=== PATIENT | female | born 1960 | race Hispanic/Latino ===

== ENCOUNTER 2017-12-07 04:36 | Inpatient (IN) | payer BC ==
[2017-12-07] MEDS ORDERED: NA CHLORIDE 0.9% 500 ML ONE (05:05)
[2017-12-07] MEDS ORDERED: MAGNE/ALUM HYDROXD 30 ML UCUP ONE ×2 (05:05→05:48)
[2017-12-07] MEDS ORDERED: ONDANSETRON 4 MG/2 ML VIAL ONE ×3 (05:05→10:54)
[2017-12-07] MEDS ORDERED: LIDOCAINE VISCOUS 2% SOLN 15 ML UDC ONE ×3 (05:06→05:51)
[2017-12-07 05:24] LABS: Absolute Lymphocytes (CBC) 1.9 K/uL (0.7-4.9); Absolute Monocytes 0.4 K/uL (0.1-1.3); Absolute Neutrophil 7.4 K/uL (1.8-8.0); Basophils % 0.3 % (0-1.3); Eosinophils % 1.1 % (0-4.4); Hematocrit 38.3 % (36.0-45.0); Lymphocytes % 19.5 % (15.3-44.8); MCH 29.9 pg (27.0-35.0); Monocytes % 3.9 % (3.3-12.3); RBC Red Blood Cell Count 4.36 M/uL (3.86-4.86)
[2017-12-07 05:41] LABS: ALT/SGPT 23 U/L (12-78); AST/SGOT 26 U/L (15-37); Albumin 3.2 g/dL (3.4-5.0); Alkaline Phosphatase 107 U/L (45-117); BUN Blood Urea Nitrogen 10 mg/dL (7-18); Bicarbonate 26 mmol/L (21-32); Bilirubin Direct < 0.1 mg/dL (0-0.2); Bilirubin Total 0.2 mg/dL (0.2-1.0); Glucose Level 117 mg/dL (74-106); Lipase 172 U/L (73-393); Potassium 3.8 mmol/L (3.5-5.1); Protein, Total 7.8 g/dL (6.4-8.2); Sodium Level 141 mmol/L (136-145)
[2017-12-07] MEDS ORDERED: NA CHLORIDE 0.9% 0 ML ONE ×2 (05:48→05:54)
[2017-12-07] MEDS ORDERED: PANTOPRAZOLE 40 MG INJ ONE (05:54)
[2017-12-07 06:22] LABS: Urine Blood 2+ (NEG); Urine Glucose NEGATIVE (NEG); Urine Protein NEGATIVE (NEG); Urine Specific Gravity 1.025 (1.005-1.030); Urine pH 5.5 (5.0-7.0)
[2017-12-07 06:32] LABS: Urine Bacteria <20 /HPF (<20); Urine Culture Reflex Order NOT NEEDED; Urine RBC <5 /HPF (NONE SEEN)
--- NOTE | 2017-12-07 08:43 | RAD REPORT ---
EXAM DESCRIPTION: CTAbdomen Pelvis W Contrast - 12/07/2017 6:52 am CLINICAL HISTORY: Abdominal pain. ABD PAIN COMPARISON: CT ABD PELVIS W CONTRAST dated 01/23/2012; Upper GI W/ Sm Bowel dated 11/22/2017; Abdomen W Erect dated 11/20/2017 TECHNIQUE: Biphasic CT imaging of the abdomen and pelvis was performed with 100 ml non-ionic IV cont rast. All CT scans are performed using dose optimization technique as appropriate and may include automated exposure control or mA/KV adjustment according to patient size. FINDINGS: The lung bases are clear. The liver contains several small low-density lesions, most compatible with benign cysts. No intra or extrahepatic biliary tree dilatation seen. The spleen, pancreas, adrenal glands and kidneys are withi n normal limits. Marked distention of the right colon is seen filled with fluid to the level of the mid transverse col on. The lumen of the colon is distended to 6-7 cm. There is abrupt caliber change of the colon at the level of the mid transverse colon (image 42/[id number]). Soft tissue mass is seen in this location measuring 2.5 cm in dimension. The findings likely indicate the presence of a colonic malignancy at this level resulting in upstream partial obstruction of the colon. Small pericolonic lymph nodes are present in this region measuring up to 6 mm. The appendix is not identified as a discrete structure, however, n o secondary findings of appendicitis are identified. No free air, significant free fluid or abscess. No suspicious bony findings. IMPRESSION: Mid transverse colon mass (2.5 cm) is identified resulting in partial upstream colonic o bstruction as detailed above. Colon malignancy is the most likely etiology and followup colonoscopy i s recommended.
--- NOTE | 2017-12-07 10:04 | EDPHYS ---
Physician Documentation [facility] Name: Zunilda Alejandro Age: 57 yrs Sex: Female : 1960 Arrival Date: 12/07/2017 Time: 04:38 Bed 5 Private MD: Bacilio Soto ED Physician Garcia Nj HPI: 12/07 04:55 This 57 yrs old Female presents to ER via Ambulatory with complaints of rn Abdominal Pain, Nausea. 04:55 The patient presents to the emergency department with nausea, vomiting, abdominal pain. rn Onset: The symptoms/episode began/occurred 2 day(s) ago. Possible causes: unknown. The symptoms are aggravated by nothing. The symptoms are alleviated by nothing. Severity of symptoms: At their worst the symptoms were moderate in the emergency department the symptoms have improved. The patient has experienced a previous episode. Reports intermittent coral-umbilical abd pain for 2 days, has had in past, seen by pcp, and had normal barium swallow, reports pain feels like "it moves", no diarrhea, no blood in stool or emesis, no chest pain, has tried liquid diet because when eats solids, abd pain/cramping returns hours later. . Historical: - Allergies: 04:55 No Known Allergies; lp1 - Home Meds: 04:55 atorvastatin 10 mg oral tab 1 tab once daily [Active]; lp1 - PMHx: 04:55 Hyperlipidemia; lp1 - PSHx: 04:55 Appendectomy; lp1 - Immunization history:: Adult Immunizations up to date. - Social history:: Smoking status: Patient/guardian denies using tobacco. - Ebola Screening: : No symptoms or risks identified at this time. - Family history:: not pertinent. - Hospitalizations: : No recent hospitalization is reported. ROS: 04:55 Constitutional: Negative for fever, chills, and weight loss, Eyes: Negative for injury, rn pain, redness, and discharge, Neck: Negative for injury, pain, and swelling, Cardiovascular: Negative for chest pain, palpitations, and edema, Respiratory: Negative for shortness of breath, cough, wheezing, and pleuritic chest pain, Abdomen/GI: Negative for diarrhea, and constipation, MS/Extremity: Negative for injury and deformity, Skin: Negative for injury, rash, and discoloration, Neuro: Negative for headache, weakness, numbness, tingling, and seizure. Exam: 04:55 Constitutional: This is a well developed, well nourished patient who is awake, alert, rn and in no acute distress. Head/Face: Normocephalic, atraumatic. ENT: MMM Cardiovascular: Regular rate and rhythm with a normal S1 and S2. No gallops, murmurs, or rubs. No pulse deficits. Respiratory: Lungs have equal breath sounds bilaterally, clear to auscultation and percussion. No rales, rhonchi or wheezes noted. No increased work of breathing, no retractions or nasal flaring. Abdomen/GI: soft, mild epigastric/RUQ/periumbilical tenderness, no rebound MS/ Extremity: Pulses equal, no cyanosis. Neurovascular intact. Full, normal range of motion. Equal circumference. Neuro: Awake and alert, GCS 15, oriented to person, place, time, and situation. Cranial nerves II-XII grossly intact. Motor strength 5/5 in all extremities. Sensory grossly intact. Vital Signs: 04:53 BP 111 / 71; Pulse 74; Resp 18; Temp 98.5(O); Pulse Ox 100% on R/A; Weight 83.01 kg; lp1 Height 5 ft. 7 in. (170.18 cm); Pain 1/10; 06:00 BP 107 / 92; Pulse 64; Resp 18; Pulse Ox 99% on R/A; lp1 07:00 BP 120 / 78; Pulse 61; Resp 16 S; Pulse Ox 99% on R/A; jl7 08:30 BP 109 / 73; Pulse 64; Resp 16 S; Pulse Ox 98% on R/A; Pain 0/10; jl7 10:41 BP 106 / 79; Pulse 70; Resp 17; Pulse Ox 98% on R/A; jb1 10:52 BP 116 / 79; Pulse 72; Resp 16; Pulse Ox 97% on R/A; jl7 04:53 Body Mass Index 28.66 (83.01 kg, 170.18 cm) lp1 MDM: 04:40 Patient medically screened. rn 10:02 Data reviewed: vital signs, nurses notes, lab test result(s), radiologic studies, CT jr8 scan. Data interpreted: Pulse oximetry: on room air is 98 %. Interpretation: normal. Counseling: I had a detailed discussion with the patient and/or guardian regarding: the historical points, exam findings, and any diagnostic results supporting the discharge/admit diagnosis, lab results, radiology results, the need for further work-up and treatment in the hospital. ED course: Dr. Márquez is admitting patient. Dr. Dobbs will see patient . 12/07 04:49 Order name: Basic Metabolic Panel; Complete Time: 06:27 rn 12/07 04:49 Order name: CBC with Diff; Complete Time: 05:31 rn 12/07 04:49 Order name: Hepatic Function; Complete Time: 06:27 rn 12/07 04:49 Order name: Lipase; Complete Time: 06:27 rn 12/07 04:49 Order name: Urine Microscopic Only; Complete Time: 06:34 rn 12/07 06:12 Order name: Urine Dipstick--Ancillary (enter results); Complete Time: 06:27 mw2 12/07 04:49 Order name: CT Abd/Pelvis - W/Contrast; Complete Time: 08:44 rn 12/07 04:49 Order name: EKG; Complete Time: 04:50 rn 12/07 10:33 Order name: CONS Physician Consult EDMS 12/07 04:49 Order name: IV Saline Lock; Complete Time: 04:59 rn 12/07 04:49 Order name: Labs collected and sent; Complete Time: 04:59 rn 12/07 04:49 Order name: Urine Dipstick-Ancillary (obtain specimen); Complete Time: 06:59 rn 12/07 04:49 Order name: EKG - Nurse/Tech; Complete Time: 05:12 rn Administered Medications: 05:12 Drug: Zofran 4 mg Route: IVP; Site: right antecubital; jd3 07:00 Follow up: Response: No adverse reaction jl7 05:12 Drug: NS 0.9% 500 ml Route: IV; Rate: bolus; Site: right antecubital; jd3 07:00 Follow up: IV Status: Completed infusion jl7 05:13 Drug: GI Cocktail without - (Maalox Suspension 30 ml, Lidocaine Liquid 2 % 15 jd3 ml) Route: PO; 07:00 Follow up: Response: No adverse reaction jl7 10:52 Drug: Zofran 4 mg Route: IVP; Site: right antecubital; jl7 11:10 Follow up: Response: No adverse reaction; Nausea is decreased jl7 10:55 Drug: fentaNYL (PF) 25 mcg Route: IVP; Site: right antecubital; jl7 11:15 Follow up: Response: No adverse reaction; Pain is decreased jl7 Disposition: 12/08 03:00 Co-signature as Attending Physician, Garcia Nj MD. rn Disposition: 12/07/17 10:03 Hospitalization ordered by Muriel Márquez for Inpatient Admission. Preliminary diagnosis are Intractable Abdominal Pain, Large bowel obstruction secondary to colonic mass . - Bed requested for Telemetry/MedSurg (Inpatient). - Status is Inpatient Admission. jl7 - Condition is Stable. - Problem is new. - Symptoms are unchanged. UTI on Admission? No Signatures: Dispatcher [employer] EDMS Merissa Raza RN RN dw Garcia Nj MD MD rn Pena, Laura RN RN lp1 Raul Brock PA PA jr8 Ernesto Pavon RN RN jl7 Steve Johnson RN RN jd3 Corrections: (The following items were deleted from the chart) 12/07 11:12 10:03 Hospitalization Ordered by Muriel Márquez MD for Inpatient Admission. Preliminary dw diagnosis is Intractable Abdominal Pain; Large bowel obstruction secondary to colonic mass . Bed requested for Telemetry/MedSurg (Inpatient). Status is Inpatient Admission. Condition is Stable. Problem is new. Symptoms are unchanged. UTI on Admission? No. jr8 11:44 11:12 12/07/2017 10:03 Hospitalization Ordered by Muriel Márquez MD for Inpatient jl7 Admission. Preliminary diagnosis is Intractable Abdominal Pain; Large bowel obstruction secondary to colonic mass . Bed requested for Telemetry/MedSurg (Inpatient). Status is Inpatient Admission. Condition is Stable. Problem is new. Symptoms are unchanged. UTI on Admission? No. dw
--- NOTE | 2017-12-07 10:04 | ER ---
Nurse's Notes [facility] Name: Zunlida Alejandro Age: 57 yrs Sex: Female : 1960 Arrival Date: 12/07/2017 Time: 04:38 Bed 5 Private MD: Bacilio Soto Diagnosis: Intractable Abdominal Pain;Large bowel obstruction secondary to colonic mass Presentation: 12/07 04:51 Presenting complaint: Patient states: Abdominal pain that began 2 days ago; States lp1 cramp-like; Denies any fever, diarrhea; Barium Swallow done 2 weeks ago and negative. Transition of care: patient was not received from another setting of care. Onset of symptoms was December 05, 2017. Risk Assessment: Do you want to hurt yourself or someone else? Patient reports no desire to harm self or others. Initial Sepsis Screen: Does the patient meet any 2 criteria? No. Patient's initial sepsis screen is negative. Does the patient have a suspected source of infection? No. Patient's initial sepsis screen is negative. Care prior to arrival: None. 04:51 Method Of Arrival: Ambulatory lp1 04:51 Acuity: KRISHNA 3 lp1 Historical: - Allergies: 04:55 No Known Allergies; lp1 - Home Meds: 04:55 atorvastatin 10 mg oral tab 1 tab once daily [Active]; lp1 - PMHx: 04:55 Hyperlipidemia; lp1 - PSHx: 04:55 Appendectomy; lp1 - Immunization history:: Adult Immunizations up to date. - Social history:: Smoking status: Patient/guardian denies using tobacco. - Ebola Screening: : No symptoms or risks identified at this time. - Family history:: not pertinent. - Hospitalizations: : No recent hospitalization is reported. Screenin:55 Abuse screen: Denies threats or abuse. Denies injuries from another. Nutritional lp1 screening: No deficits noted. Tuberculosis screening: No symptoms or risk factors identified. Fall Risk None identified. Assessment: 04:56 General: Appears uncomfortable, Behavior is appropriate for age. Pain: Complains of lp1 pain in right upper quadrant and left upper quadrant Pain currently is 3 out of 10 on a pain scale. Quality of pain is described as crampy, Pain began 2-3 days ago. Neuro: Level of Consciousness is awake, alert, obeys commands. Cardiovascular: Patient's skin is warm and dry. Respiratory: Respiratory effort is even, unlabored. GI: Abdomen is non-distended, Bowel sounds present X 4 quads. Abdomen is tender to palpation in right upper quadrant and left upper quadrant. : Denies burning with urination. EENT: No signs and/or symptoms were reported regarding the EENT system. Derm: Skin is pink, warm \T\ dry. Musculoskeletal: Circulation, motion, and sensation intact. 06:00 Reassessment: Patient appears in no apparent distress at this time. No changes from lp1 previously documented assessment. Patient and/or family updated on plan of care and expected duration. Pain level reassessed. 07:00 Reassessment: Patient appears in no apparent distress at this time. Patient is alert, jl7 oriented x 3, equal unlabored respirations, skin warm/dry/pink. 08:15 Reassessment: Patient appears in no apparent distress at this time. Pt denies pain at jl7 this time but reports intermittent upper abdomen pain. Pt reports the GI cocktail didn't really do anything. Pt updated on POC. Awaiting CT results at this time. 09:15 Reassessment: No changes from previously documented assessment. Patient and/or family jl7 updated on plan of care and expected duration. Pain level reassessed. Patient is alert, oriented x 3, equal unlabored respirations, skin warm/dry/pink. 10:15 Reassessment: Patient appears in no apparent distress at this time. Patient and/or jl7 family updated on plan of care and expected duration. Pain level reassessed. Patient is alert, oriented x 3, equal unlabored respirations, skin warm/dry/pink. 11:15 Reassessment: Patient and/or family updated on plan of care and expected duration. Pain jl7 level reassessed. Patient is alert, oriented x 3, equal unlabored respirations, skin warm/dry/pink. Vital Signs: 04:53 BP 111 / 71; Pulse 74; Resp 18; Temp 98.5(O); Pulse Ox 100% on R/A; Weight 83.01 kg; lp1 Height 5 ft. 7 in. (170.18 cm); Pain /10; 06:00 BP 107 / 92; Pulse 64; Resp 18; Pulse Ox 99% on R/A; lp1 07:00 BP 120 / 78; Pulse 61; Resp 16 S; Pulse Ox 99% on R/A; jl7 08:30 BP 109 / 73; Pulse 64; Resp 16 S; Pulse Ox 98% on R/A; Pain 0/10; jl7 10:41 BP 106 / 79; Pulse 70; Resp 17; Pulse Ox 98% on R/A; jb1 10:52 BP 116 / 79; Pulse 72; Resp 16; Pulse Ox 97% on R/A; jl7 04:53 Body Mass Index 28.66 (83.01 kg, 170.18 cm) lp1 ED Course: 04:38 Patient arrived in ED. ds1 04:39 Bacilio Soto MD is Private Physician. ds1 04:40 Garcia Nj MD is Attending Physician. rn 04:50 Kimmy Vazquez RN is Primary Nurse. lp1 04:52 Triage completed. lp1 04:53 Arm band placed on left wrist. lp1 04:55 Patient has correct armband on for positive identification. Placed in gown. Bed in low lp1 position. Call light in reach. Pulse ox on. NIBP on. 04:55 Inserted saline lock: 20 gauge in right antecubital area, using aseptic technique. jd3 Blood collected. 06:[address] via wheelchair. kw1 06:52 CT Abd/Pelvis - W/Contrast In Process Unspecified. EDMS 06:54 CT completed. Patient tolerated procedure well. Patient moved back from CT. kw1 07:46 Raul Brock PA is PHCP. jr8 08:11 Primary Nurse role handed off by Kimmy Vazquez, RN jl7 08:11 Ernesto Pavon RN is Primary Nurse. jl7 10:02 Muriel Márquez MD is Hospitalizing Provider. jr8 11:15 No provider procedures requiring assistance completed. Patient admitted, IV remains in jl7 place. intact, No redness/swelling at site. Administered Medications: 05:12 Drug: Zofran 4 mg Route: IVP; Site: right antecubital; jd3 07:00 Follow up: Response: No adverse reaction jl7 05:12 Drug: NS 0.9% 500 ml Route: IV; Rate: bolus; Site: right antecubital; jd3 07:00 Follow up: IV Status: Completed infusion jl7 05:13 Drug: GI Cocktail without - (Maalox Suspension 30 ml, Lidocaine Liquid 2 % 15 jd3 ml) Route: PO; 07:00 Follow up: Response: No adverse reaction jl7 10:52 Drug: Zofran 4 mg Route: IVP; Site: right antecubital; jl7 11:10 Follow up: Response: No adverse reaction; Nausea is decreased jl7 10:55 Drug: fentaNYL (PF) 25 mcg Route: IVP; Site: right antecubital; jl7 11:15 Follow up: Response: No adverse reaction; Pain is decreased jl7 Outcome: 10:03 Decision to Hospitalize by Provider. jr8 11:35 Admitted to Med/surg accompanied by tech, family with patient, via wheelchair, room jl7 215, with chart, Report called to ANT Rogers 11:35 Condition: stable 11:35 Discharge instructions given to patient, family, Instructed on the need for admit, Demonstrated understanding of instructions. 11:44 Patient left the ED. jl7 Signatures: Dispatcher [employer] EDJett Ryan jb1 Gala Garcia ds1 Garcia Nj MD MD rn Pena, Laura, RN RN lp1 Raul Brock PA PA jr8 Ernesto Pavon RN RN jl7 Steve Johnson RN RN jd3 Codie Pond [facility]
[2017-12-07] MEDS ORDERED: FENTANYL CITR 100 MCG/2 ML ONE (10:54)
[2017-12-07] MEDS ORDERED: ONDANSETRON 4 MG/2 ML VIAL IV PRN (11:39)
[2017-12-07 12:04] VITALS: BMI 29.2
--- NOTE | 2017-12-07 12:16 | P.HP ---
Certification for Inpatient Patient admitted to: Inpatient With expected LOS: >2 Midnights Patient will require the following post-hospital care: None Practitioner: I am a practitioner with admitting privileges, knowledge of patient current condition, hospital course, and medical plan of care. Services: Services provided to patient in accordance with Admission requirements found in Title 42 Section 412.3 of the Code of Federal Regulations Patient History Date of Service: 12/07/17 Primary Care Provider: Dr Soto -Hospitalist Covering for hime Reason for admission: Abd Pain History of Present Illness: 57 y/o F with H/o hyperlipidemia presented to the ED with c/o Abd pain, N/v since 2 days. Overnight it got worse and thus pt was brought to the hospital for further care. vomiited x 5 and abd pain is sharp and cramping in nature. Pt has history of appendectomy in the past after which is developed several Adhesion and SBO for with she had a bowel resection done with Dr Zuleta. Was doing well overall untill now. Colonoscopy 6 years ago was WNL. Denies Fever, chills or any other symptoms at this time In the ER pt had abd ct which was consistent with LBO and 2.5 CM transverse colon mass concerning for malignancy and thus was referred for admission. Allergies No Known Allergies Allergy (Unverified 01/23/12 19:55) Home Medications: Hydrocodone/Acetaminophen [Vicodin 5-500 Tablet] 1 - 2 each PO Q4HP PRN #50 tablet 01/28/12 Ondansetron [Zofran Odt] 4 mg PO Q6HP PRN #10 tab.rapdis 01/28/12 Atorvastatin Calcium [Lipitor] 10 mg PO DAILY 12/07/17 - Past Medical/Surgical History Has patient received pneumonia vaccine in the past: No Diabetic: No -: Hyperlipidemia -: Appendectomy -: Small bowel Resection - Family History Family History: Reviewed- Non-Contributory - Social History Smoking Status: Never smoker Alcohol use: No CD- Drugs: No Caffeine use: Yes Review of Systems General: As per HPI Physical Examination - Vital Signs Temperature: 98.5 F Blood Pressure: 116/79 Pulse: 72 Respirations: 16 - Physical Exam General: Alert, In no apparent distress HEENT: Atraumatic Neck: Supple Respiratory: Clear to auscultation bilaterally, Normal air movement Cardiovascular: Regular rate/rhythm, Normal S1 S2 Gastrointestinal: Normal bowel sounds, Hypoactive, Tenderness (Generalized tenderness) Musculoskeletal: No tenderness Integumentary: No rashes Neurological: Normal speech, Normal strength at 5/5 x4 extr, Normal tone Lymphatics: No axilla or inguinal lymphadenopathy - Studies Laboratory Data (last 24 hrs) 12/07/17 04:55: WBC 9.8, Hgb 13.0, Hct 38.3, Plt Count 285 12/07/17 04:55: Sodium 141, Potassium 3.8, BUN 10, Creatinine 0.70, Glucose 117 H, Total Bilirubin 0.2, AST 26, ALT 23, Alkaline Phosphatase 107, Lipase 172 Assessment and Plan - Problems (Diagnosis) (1) Large bowel obstruction Current Visit: Yes Status: Acute Plan: LBO 2.2 to transverse colon mass of 2.5cm -Dr Zuleta is unavailable at this time thus surgeon auto inspection specialist Dr alonso is consulted. Awaiting reccs -NPO and IV pain medication for now -Will need surgical Procedure (2) Mass of colon Current Visit: Yes Status: Acute Plan: 2.5cm transerve colon mass. Concerning for Malignancy -Surgery consulted. Awaiting reccs (3) Hyperlipidemia Current Visit: Yes Status: Chronic Plan: Restart Home medication Qualifiers: Hyperlipidemia type: mixed hyperlipidemia Qualified Code(s): E78.2 - Mixed hyperlipidemia (4) History of resection of small bowel Current Visit: Yes Status: Chronic Discharge Plan: Home Plan to discharge in: Greater than 2 days - Advance Directives Does patient have a Living Will: No Does patient have a Durable POA for Healthcare: No - Code Status/Comfort Care Code Status Assessed: Yes Critical Care: No
[2017-12-07] MEDS: NA CHLORIDE 0.9% 1,000 ML IV SCH ×2 (12:39→22:51)
[2017-12-08 05:22] LABS: Absolute Lymphocytes (CBC) 2.4 K/uL (0.7-4.9); Absolute Monocytes 0.4 K/uL (0.1-1.3); Absolute Neutrophil 3.5 K/uL (1.8-8.0); Basophils % 0.3 % (0-1.3); Eosinophils % 1.6 % (0-4.4); Hematocrit 32.8 % (36.0-45.0); Lymphocytes % 38.1 % (15.3-44.8); MCH 29.9 pg (27.0-35.0); MCV 88.8 fL (80-100); MPV 8.3 fL (7.6-11.3); Monocytes % 5.8 % (3.3-12.3); RBC Red Blood Cell Count 3.69 M/uL (3.86-4.86)
[2017-12-08 05:42] LABS: Albumin 2.5 g/dL (3.4-5.0); Bilirubin Total 0.3 mg/dL (0.2-1.0); Potassium 3.8 mmol/L (3.5-5.1)
[2017-12-08] MEDS ORDERED: KCL 20 MEQ/100 mL IVPB 20 MEQ/100 ML BAG IV SCH (06:30)
[2017-12-08] MEDS: NA CHLORIDE 0.9% 1,000 ML IV SCH ×2 (09:30→19:26)
--- NOTE | 2017-12-08 10:44 | EKG ---
Test Date: 2017-12-07 Test Time: 05:07:01 [employer]: GALLO MEASUREMENT RESULTS: Intervals: Rate: 69 [place]: 148 QRSD: 76 QT: 396 QTc: 424 [place]: P: 67 [place]: 148 QRS: 59 T: 36 INTERPRETIVE STATEMENTS: Normal sinus rhythm Normal ECG Compared to ECG 01/24/2012 09:37:10 No significant changes Electronically Signed On 12-08-17 10:43:38 CDT by Enzo Munguia
[2017-12-08] MEDS: METOCLOPRAMIDE 10 MG/2mL INJ IV SCH ×3 (11:40→19:26)
--- NOTE | 2017-12-08 11:40 | CON ---
Date of Consultation: 12/08/2017 Reason For Consultation: Bowel obstruction, possibly due to neoplastic process or scar tissue with a bnormal CT scan and abdominal pain. History Of Present Illness: The patient is a 57-year-old female with history of hyperlipide bennett, brought to the hospital with a 2-day history of periumbilical pain with nausea and vomiting. CT scan revealed a 2.5 cm mass in the transverse colon with some small less than 6 mm lymph nodes in th at area with proximal dilatation of the right colon and small bowel. Radiology read this as a partia l small bowel obstruction secondary to colon mass in the . The patient states that she had a colonoscopy approximately 6 years ago, which was within normal limits. She denies fevers, chills, melena, hematochezia, melena, coffee-grounds emesis, change in weight. She does have some night swe ats, she reports over the past 6 months. She thought that was due to change of life menopause. Past Medical History: Remarkable for hyperlipidemia, appendectomy approximately 2012 thought due to scar tissue at that time, and tubal ligation in the past. Medications: Home medications include Vicodin, Zoloft, Lipitor. Allergies: NKDA. Social History: She is . Son and daughter. No tobacco. No alcohol. She is to work for [employer] for over 10 years, recently retired. Family History: Father of massive myocardial infarction at age 61. Mother still alive with hyp ertension, diabetes, and early signs of dementia in her 80s. Review of Systems: The patient had periumbilical pain that radiated up to the midepigastric and lower to suprapubic area and generalized. She reports maximum amount 10/10 prior to admission, now down to 0. She denies an y melena, hematochezia, melena, coffee-ground, hematuria, dysuria, or polydipsia. No shortness of br eath, seizure, syncope, lower extremity paresthesias, muscle aches, joint aches, backaches. No fever s, chills, but she did have some night sweats over the past 6 months that she attributes to menopause . Physical Examination: Vital Signs: On exam, she is afebrile. Temperature 97.8 degrees Fahrenheit, pulse 58, respirations 16, blood pressure 92/55, O2 sat 99%. General: She is a well-nourished white female, overweight, and in no acute distress. HEENT: Normocephalic, atraumatic. Anicteric. Pupils are equal, round, and reactive to light. Extr aocular movements are intact. Oropharynx is clear. Neck: Supple. No masses. Respirations: Clear to auscultation bilaterally. Cardiac: Regular rate and rhythm. Gastrointestinal: Positive bowel sounds, hypoactive. Soft, nondistended. Mild tenderness in perium bilical area. No hepatosplenomegaly. No peritoneal or Grace sign. Extremities: No clubbing, cyanosis, or edema. 2+ pulses. Neuro: Alert and oriented x3. Grossly nonfocal. 5/5 motor strength. Sensation intact to light erickson ch. The patient is 5 feet 7 inches, 187 pounds, BMI of 29.3 kg/m2. Laboratory Data: The patient has a white count of 6.4, down from 9.8 yesterday; hemoglobin 11.0, flores n from 13.0 yesterday; hematocrit 33, MCV of 89; platelet count of 223; polys of 54%; lymphocytes 30% ; monocytes 6%; eosinophils 2%. The patient has a sodium of 143, potassium 3.8, chloride 111, bicarb 27, BUN of 8, creatinine of 0.7, glucose of 184, calcium is 8.1. Total bilirubin 0.3, AST of 18, AL T of 16, alk phos 81, total protein 6.0, albumin 2.5. Lipase of 172, which is normal. CEA is normal at 4.0 and CA19-9 which is pending at this time has been ordered. UA; 1+ ketones, 2+ blo od, negative nitrate and leukocyte esterase, otherwise negative. CT abdomen and pelvis reveals a 2.5 cm mass in the mid transverse colon with resultant partial extreme colonic obstruction. Colon malig delvis is most likely the etiology, followup colonoscopy is recommended. Also of note, there are some small pericolonic lymph nodes present in the mid transverse colon area measuring up to 6 mm. Append ix is not identified. No free air. 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 Periumbilical pain was a 10/10 prior to admission, now down to 0. The patient states she is having bowel movements after CT scan with contrast. The c ontrast is coming out in her stool. She had a colonoscopy approximately 6 years ago and verbally was negative. CEA is 4, which is normal. She has some nausea, vomiting, and some night sweats, but thi nks night sweats were possibly due to her menopause over the past 6 months. Discussed case with Surg paul and Surgery is unsure if this is due to neoplastic process or scar tissue at this point since she had a negative colonoscopy 6 years ago with a negative CA now, though still possibility and we would like a colonoscopy performed. The increased risk of possible ball-valve effect of mass for the area can get into the right colon into the left colon and cause dilatation and possible perfor ation of colon was discussed. Surgeon would like for us to proceed with this increased risk colonosc opy to assess whether the patient has neoplastic process versus an adhesion to determine appropriate surgical therapy. 2.History of hyperlipidemia, appendectomy 20 years ago, adhesion with small bowel obstruction in 201 3 with surgery at that time and tubal ligation. Recommendations: 1.Discussed case with Surgery due to possible ball-valve effect of transverse colon mass with proxim al right colon dilatation already. The patient informed as well as increased risk of this procedure and as per Surgery's request that we need to do this to help Surgery make appropriate surgical plan f or neoplasia versus adhesion or scar tissue or inflammatory stricture or other. Therefore, we will p roceed with attempted colon prep. If this is successful, we will proceed with attempted high-risk co lonoscopy tomorrow with Surgery on-call and ready to take the patient to OR if the patient has intrac table pain due to severe right colon and proximal bowel dilatation to ball-valve effect and perforati on or other. 2.Continue IV fluids. 3.Continue p.r.n. pain medications, antiemetics, and monitoring labs. NAYELI/SABINE Voice ID: [id number] Report ID: [id number]
--- NOTE | 2017-12-08 12:57 | P.PN ---
Subjective Date of Service: 12/08/17 Primary Care Provider: Dr Soto -Hospitalist Covering for vee Chief Complaint: Abd Pain Subjective: No C/O voiced, Ambulating, Improving, Doing well Review of Systems General: As per HPI Physical Examination - Vital Signs Temperature: 98.0 F Blood Pressure: 107/57 Pulse: 56 Respirations: 16 Pulse Ox (%): 98 - Physical Exam General: Alert, In no apparent distress HEENT: Atraumatic, PERRLA, EOMI Neck: Supple, JVD not distended Respiratory: Clear to auscultation bilaterally, Normal air movement Cardiovascular: Regular rate/rhythm, Normal S1 S2 Gastrointestinal: Normal bowel sounds, No tenderness Musculoskeletal: No tenderness Integumentary: No rashes Neurological: Normal speech, Normal tone, Normal affect Lymphatics: No axilla or inguinal lymphadenopathy - Studies Medications List Reviewed: Yes Assessment & Plan - Problems (Diagnosis) (1) Large bowel obstruction Current Visit: Yes Status: Acute Plan: LBO 2.2 to transverse colon mass of 2.5cm -Dr Zuleta is unavailable at this time thus surgeon electronic console display operator Dr alonso is consulted. -NPO and IV pain medication for now -Pt scheduled for Colonoscopy (2) Mass of colon Current Visit: Yes Status: Acute Plan: 2.5cm transerve colon mass. Concerning for Malignancy -Surgery consulted. -Gi Consulted. pt scheduled for Colonoscopy (3) Hyperlipidemia Current Visit: Yes Status: Chronic Plan: Restart Home medication Qualifiers: Hyperlipidemia type: mixed hyperlipidemia Qualified Code(s): E78.2 - Mixed hyperlipidemia (4) History of resection of small bowel Current Visit: Yes Status: Chronic Discharge Plan: Home Plan to discharge in: 72 Hours - Code Status/Comfort Care Code Status Assessed: Yes Critical Care: No
[2017-12-08] MEDS ORDERED: MAGNESIUM CITRATE 300 ML BOT PO SCH (13:00)
[2017-12-08] MEDS ORDERED: GOLYTELY 4000 ML PO SCH (14:00)
--- NOTE | 2017-12-08 17:43 | P.PN ---
Date of Service: 12/08/17 S: Patient feels okay today, undergoing a bowel prep O: Abdomen soft, no tenderness A: Tolerating her bowel prep well. No pain or discomfort. P: Patient currently undergoing a bowel prep. Appears to be tolerating it well. She is going to have a colonoscopy tomorrow. Pending the results of this will allow us to determine surgical strategy for taking care of this transverse colon lesion. I have discussed this with it. She understands and agrees to the current plan.
[2017-12-08] MEDS: ATORVASTATIN 10 MG TAB PO SCH (21:29)
[2017-12-09 05:06] LABS: Absolute Lymphocytes (CBC) 1.9 K/uL (0.7-4.9); Absolute Monocytes 0.3 K/uL (0.1-1.3); Absolute Neutrophil 3.6 K/uL (1.8-8.0); Basophils % 0.4 % (0-1.3); Eosinophils % 1.5 % (0-4.4); MCH 29.8 pg (27.0-35.0); MPV 7.9 fL (7.6-11.3); Monocytes % 5.7 % (3.3-12.3); RBC Red Blood Cell Count 3.64 M/uL (3.86-4.86)
[2017-12-09 05:24] LABS: ALT/SGPT 14 U/L (12-78); AST/SGOT 18 U/L (15-37); Albumin 2.6 g/dL (3.4-5.0); Alkaline Phosphatase 79 U/L (45-117); BUN Blood Urea Nitrogen 5 mg/dL (7-18); Bicarbonate 24 mmol/L (21-32); Bilirubin Total 0.3 mg/dL (0.2-1.0); Glucose Level 74 mg/dL (74-106); Potassium 3.8 mmol/L (3.5-5.1); Sodium Level 143 mmol/L (136-145)
[2017-12-09] MEDS: NA CHLORIDE 0.9% 1,000 ML IV SCH ×3 (06:46→23:19)
[2017-12-09] MEDS ORDERED: KCL 20 MEQ/100 mL IVPB 20 MEQ/100 ML BAG IV SCH (08:00)
--- NOTE | 2017-12-09 10:05 | P.PN ---
Subjective Date of Service: 12/09/17 Primary Care Provider: Dr Soto -Hospitalist Covering for vee Chief Complaint: Abd Pain Pt seen and examined today. Chart reviewed. Scheduled for Colonoscopy today. Doing well overall. Review of Systems General: As per HPI Physical Examination - Vital Signs Temperature: 98.5 F Blood Pressure: 100/56 Pulse: 65 Respirations: 18 Pulse Ox (%): 98 - Physical Exam General: Alert, In no apparent distress HEENT: Atraumatic, PERRLA, EOMI Neck: Supple, JVD not distended Respiratory: Clear to auscultation bilaterally, Normal air movement Cardiovascular: Regular rate/rhythm, Normal S1 S2 Gastrointestinal: Normal bowel sounds, No tenderness Musculoskeletal: No tenderness Integumentary: No rashes Neurological: Normal speech, Normal tone, Normal affect Lymphatics: No axilla or inguinal lymphadenopathy - Studies Medications List Reviewed: Yes Assessment & Plan - Problems (Diagnosis) (1) Large bowel obstruction Onset Date: 12/09/17 Current Visit: Yes Status: Acute Plan: LBO 2.2 to transverse colon mass of 2.5cm -Dr Zuleta is unavailable at this time thus surgeon marine extension agent Dr alonso is consulted. -NPO and IV pain medication for now -Pt scheduled for Colonoscopy today -Improving today (2) Mass of colon Onset Date: 12/09/17 Current Visit: Yes Status: Acute Plan: 2.5cm transerve colon mass. Concerning for Malignancy -Surgery consulted. Reccs Appreciate -GI Consulted. pt scheduled for Colonoscopy today (3) Hyperlipidemia Onset Date: 12/09/17 Current Visit: Yes Status: Chronic Plan: Restart Home medication Qualifiers: Hyperlipidemia type: mixed hyperlipidemia Qualified Code(s): E78.2 - Mixed hyperlipidemia (4) History of resection of small bowel Current Visit: Yes Status: Chronic Discharge Plan: Home Plan to discharge in: Greater than 2 days - Code Status/Comfort Care Code Status Assessed: Yes Critical Care: No
[2017-12-09] MEDS ORDERED: Ringers Lactate 1,000 ML IV ONE ×2 (13:55→20:17)
--- NOTE | 2017-12-09 15:01 | P.PN ---
Subjective Date of Service: 12/09/17 Primary Care Provider: Dr Soto -Hospitalist Covering for vee Chief Complaint: large bowel obstruction in the transverse colon, periumbilical abd pain Subjective: Improving (No pain now. Prepped for colonoscopy. Surgery reviewed films and assessment now -> patient to go to OR now without colonoscopy today.) Review of Systems 10-point ROS is otherwise unremarkable Physical Examination - Vital Signs Temperature: 96.9 F Blood Pressure: 108/58 Pulse: 71 Respirations: 18 Pulse Ox (%): 98 - Physical Exam General: Alert, In no apparent distress, Oriented x3, Cooperative HEENT: Atraumatic, Normocephalic, PERRLA, EOMI Neck: Supple Respiratory: Clear to auscultation bilaterally Cardiovascular: No edema Gastrointestinal: Soft and benign, No tenderness, No rebound, No guarding Musculoskeletal: No swelling Neurological: Normal speech, Normal strength at 5/5 x4 extr - Studies Medications List Reviewed: Yes Assessment And Plan - Current Problems (Diagnosis) (1) Abnormal CT of the abdomen Current Visit: Yes Status: Acute (2) Large bowel obstruction Onset Date: 12/09/17 Current Visit: Yes Status: Acute Comment: 2.5 cm mass at transverse with surrounding < 6 mm LNs. CEA negative. H/o small bowel obstruction due to adhesions requiring surgery in the past. Last colonoscopy 6 years ago. (3) Mass of colon Onset Date: 12/09/17 Current Visit: Yes Status: Acute (4) History of resection of small bowel Current Visit: Yes Status: Chronic (5) Hyperlipidemia Onset Date: 12/09/17 Current Visit: Yes Status: Chronic Qualifiers: Hyperlipidemia type: mixed hyperlipidemia Qualified Code(s): E78.2 - Mixed hyperlipidemia - Plan REC: 1) await results from surgery to be done today 2) colonoscopy canceled as per new assessment by surgery
[2017-12-09] MEDS ORDERED: SUCCINYLCHOLINE 20 MG/ML (10 ML) IV ONE (18:56)
[2017-12-09] MEDS ORDERED: PROPOFOL 200 MG/20 ML VIAL IV ONE (19:00)
[2017-12-09] MEDS ORDERED: FENTANYL CITR 250 MCG/5 ML ONE (19:01)
[2017-12-09] MEDS ORDERED: LIDOCAINE 2% MPF 5 ML VIAL ONE (19:01)
[2017-12-09] MEDS ORDERED: ROCURONIUM 50 MG/5 ML VIAL IV ONE ×2 (19:01→20:55)
[2017-12-09] MEDS ORDERED: CEFOXITIN SODIUM 1 GM/VIAL IVPB ONE (19:23)
[2017-12-09] MEDS ORDERED: CEFOXITIN/NS 1gm 1 GM/50 ML BAG IV SCH (19:30)
[2017-12-09] MEDS ORDERED: CEFOXITIN/SWI 1gm 1 GM/10 ML SYR ONE (19:40)
[2017-12-09] MEDS ORDERED: KETOROLAC 30 MG/ML INJ ONE (20:57)
[2017-12-09] MEDS ORDERED: ONDANSETRON HCL 40 MG/20 ML VIAL ONE (20:57)
[2017-12-09] MEDS ORDERED: DEXAMETHASONE 10 MG/ML VIAL ONE (20:57)
[2017-12-09] MEDS: ATORVASTATIN 10 MG TAB PO SCH (21:00)
[2017-12-09] MEDS ORDERED: GLYCOPYRROLATE 0.2 MG/ML SYR ONE (21:25)
[2017-12-09] MEDS ORDERED: NEOSTIGMINE 1 MG/ML -5 ML SYRINGE ONE (21:26)
[2017-12-09] MEDS: MEPERIDINE HCL 50 MG/ML AMP ONE ×3 (22:07→22:22)
[2017-12-09] MEDS ORDERED: ONDANSETRON 4 MG/2 ML VIAL ONE (22:21)
[2017-12-09] MEDS ORDERED: MORPHINE 4 MG/ML SYR IV PRN (22:21)
[2017-12-09] MEDS ORDERED: ONDANSETRON 4 MG/2 ML VIAL IV PRN (22:21)
[2017-12-09] MEDS ORDERED: MEPERIDINE HCL 50 MG/ML AMP ONE (22:38)
--- NOTE | 2017-12-09 22:41 | P.OP ---
Preoperative diagnosis: Lesion of the transverse colon, partial bowel obstruction Postoperative diagnosis: The same Primary procedure: Exploratory laparotomy lysis of extensive adhesions resection of the transv Secondary procedure: Resection of the transverse colon Other procedure(s): Lyses of extensive intra-abdominal adhesions Anesthesia: General Estimated blood loss: Less than 30 cc Specimen: Transverse colon Teodoro mesenteric attachments Findings: A lymph node at the base her of the middle colic artery Operative Technique: The patient brought to the operating room and placed supine on the table. After the induction of adequate general endotracheal anesthesia, the area of the abdomen was prepped with a DuraPrep solution, a Falk catheter was inserted, and she was draped in usual aseptic manner. A generous midline incision was made. This brought down through the skin and subcutaneous tissue. The fascia in the upper midline was opened. We encounter the old suture line for previous exploratory laparotomies as well as appendectomy in the past. These all sutures were removed. The fascia was carefully opened. Were able to gain minimal access in the upper portion the abdomen to the peritoneal cavity. A finger was placed into the abdomen. We were able to sweep this wide some loose adhesions that seemed to be predominantly on the right side of the midline. A retractor was now placed into the abdominal cavity. The rest of the fascia was opened for the full length of our incision. At this point a hand was placed into the peritoneal cavity. In the transverse colon we could feel was hard mass that was easily palpable. The bowel was now mobilized from the surrounding area. The omentum was detached from the pelvis. Stringy adhesions were taken off from the anterior abdominal wall. The transverse colon was now identified. The left colon was remarkably mobile. The gastrocolic ligament was now opened. We were able to isolate this portion of the transverse colon.. By transillumination we could see the middle colic artery. This was traced down to its origin. This portion was now divided after placing a hemostat across the facile. Just of this area there was also a lymph node that was taken with the specimen. A stick tie of dose silk was used to secure this vessel. At this point the CLAUDY was placed across the transverse colon and ensuring we had adequate margins was fired. This pus was now threaded sent for histopathology. The right ascending colon was now mobilized from the hepatic flexure. This was now brought more medially. We were able to construct a [id number] functional end-to-end anastomosis using these 2 pieces of transverse coal of right colon and transverse colon. An anastomosis having me constructed, the omentum was laid in that area to cover it. Adequate hemostasis was ensured. There was now inspected to ensure that we had normal bowel continue running suture ofcontinuity. A hand was placed into the true pelvis.. No other gross pathology was noted. At this point attention was turned back towards our midline incision. The fascia was approximated using a running suture of PDS. The skin was closed with sukh. At the end of the procedure the patient was in a stable condition when sent to the recovery room. Needle sponge instrument count were correct. No drains were placed. Complications: None Transferred to: Recovery Room Condition: Good
[2017-12-10] MEDS ORDERED: CEFOXITIN SODIUM 2 GM/VIAL ONE (00:59)
[2017-12-10] MEDS ORDERED: NA CHLORIDE 0.9% 0 ML ONE (01:04)
[2017-12-10] MEDS ORDERED: NA CHLORIDE 0.9% 200 ML ONE (01:07)
[2017-12-10 04:50] LABS: Absolute Lymphocytes (CBC) 0.4 K/uL (0.7-4.9); Absolute Monocytes 0.5 K/uL (0.1-1.3); Absolute Neutrophil 12.9 K/uL (1.8-8.0); Basophils % 0.1 % (0-1.3); Hematocrit 35.7 % (36.0-45.0); Lymphocytes % 3.2 % (15.3-44.8); MCH 29.7 pg (27.0-35.0); MCV 90.6 fL (80-100); MPV 7.9 fL (7.6-11.3); Monocytes % 3.6 % (3.3-12.3); RBC Red Blood Cell Count 3.93 M/uL (3.86-4.86)
[2017-12-10 05:15] LABS: Albumin 2.9 g/dL (3.4-5.0); Bilirubin Total 0.5 mg/dL (0.2-1.0); Potassium 5.1 mmol/L (3.5-5.1); Protein, Total 6.9 g/dL (6.4-8.2)
[2017-12-10] MEDS: CEFOXITIN 1 GM in NA CHLORIDE 0.9% 100 ML IVPB SCH ×3 (05:57)
[2017-12-10 06:19] LABS: Blood Morphology Comment NOT SEEN (NOT SEEN); Platelet Estimate ADEQ
[2017-12-10] MEDS ORDERED: HYDROCODONE/APAP 5/325 MG TAB PO PRN (08:35)
[2017-12-10] MEDS: NA CHLORIDE 0.9% 1,000 ML IV SCH ×3 (08:55→23:51)
[2017-12-10] MEDS: CEFOXITIN/SWI 1gm 1 GM/10 ML SYR IV SCH ×3 (12:33→23:51)
--- NOTE | 2017-12-10 16:44 | P.HP ---
Date of Service: 12/10/17 S: Patient feels very comfortable periareolar required pain medicine once all day today. Has been up ambulating, her Falk catheter has been discontinued and she is voiding on her own. Her incision is clean. O: Vital signs are stable, adequate urine output, hemoglobin hematocrit are stable A: Making progress status post exploratory laparotomy with transverse colon resection P: Continue on clear liquids, advanced diet as tolerated. I will bolus her tonight with 500 cc of normal saline. Anticipate being able to advance her diet to a soft mechanical in the morning. Abdominal binder has been ordered to help her maintain her mobility.
[2017-12-10] MEDS ORDERED: NA CHLORIDE 0.9% 500 ML IV ONE (18:00)
[2017-12-10] MEDS: MORPHINE 4 MG/ML SYR IV PRN ×2 (18:33→21:21)
--- NOTE | 2017-12-10 20:57 | PN ---
Date of Progress Note: 12/10/2017 Subjective: The patient seen and examined. Chart reviewed and case discussed with RN. The patient states her pain is tolerable. No nausea or vomiting. Review of Systems: Negative except as above. Medications: Reviewed. Physical Examination: Vital Signs: Temperature 97.9, heart rate 71, blood pressure 104/59, respirations 12, O2 100% on sarah m air. General: Awake, alert, oriented x3. Some mild distress, ill-appearing female, overweight. BMI 29. CV: S1, S2. No murmurs. Regular rate and rhythm. Peripheral pulses present. Respiratory: Clear to auscultation bilaterally. No wheezing. No stridor. No use of accessory musc les. Gastrointestinal: Abdomen is soft. Mild tenderness to palpation. Incision site clean, dry, intact, bandaged. Bowel sounds are positive. Extremities: No clubbing, cyanosis, or edema. Neurologic: Nonfocal. Laboratory Data: Sodium 138, potassium 5.1, chloride 107, CO2 22, BUN 7, creatinine 0.7, glucose 88, albumin 2.9. WBC 13.9, H and H 11.7, 35.7, platelets 225, neutrophils 93.1%, 9% bands. Assessment And Plan: 1.A 57-year-old female with large bowel obstruction secondary to transverse colon mass 2.5 cm, statu s post partial transverse colon resection by Dr. Dobbs, postoperative day #1. The patient tolerate d procedure well. We will await pathology results. 2.Colon mass, 2.5 cm transverse colon mass concerning for malignancy status post resection. CE was negative. We will follow up with pathology. Dr. Morin also on the case. 3.Mixed hyperlipidemia. 4.History of small bowel resection. 5.Overweight, BMI 29.3. 6.Gastrointestinal and deep venous thrombosis prophylaxis with PPI and Lovenox we will start 24 hour s post surgery. SA/MODL Voice ID: [id number] Report ID: [id number]
[2017-12-10] MEDS: ATORVASTATIN 10 MG TAB PO SCH (21:20)
[2017-12-10 22:35] VITALS: O2SAT 99
[2017-12-11 05:44] LABS: ALT/SGPT 23 U/L (12-78); AST/SGOT 28 U/L (15-37); Albumin 2.5 g/dL (3.4-5.0); Alkaline Phosphatase 75 U/L (45-117); BUN Blood Urea Nitrogen 7 mg/dL (7-18); Bicarbonate 23 mmol/L (21-32); Bilirubin Total 0.5 mg/dL (0.2-1.0); Glucose Level 96 mg/dL (74-106); Magnesium 2.1 mg/dL (1.8-2.4); Phosphorus 1.9 mg/dL (2.5-4.9); Potassium 3.9 mmol/L (3.5-5.1); Protein, Total 6.2 g/dL (6.4-8.2); Sodium Level 141 mmol/L (136-145)
[2017-12-11] MEDS ORDERED: POTASSIUM PHOS IN 0.9 % NACL 15 MMOL/250 ML BAG IV ONE (06:00)
[2017-12-11 06:11] LABS: Absolute Lymphocytes (CBC) 1.9 K/uL (0.7-4.9); Absolute Monocytes 0.6 K/uL (0.1-1.3); Absolute Neutrophil 6.8 K/uL (1.8-8.0); Basophils % 0.1 % (0-1.3); Eosinophils % 0.1 % (0-4.4); Hematocrit 31.3 % (36.0-45.0); Lymphocytes % 20.6 % (15.3-44.8); MCH 29.7 pg (27.0-35.0); MCV 88.7 fL (80-100); MPV 8.2 fL (7.6-11.3); Monocytes % 6.4 % (3.3-12.3); RBC Red Blood Cell Count 3.53 M/uL (3.86-4.86)
--- NOTE | 2017-12-11 08:42 | P.PN ---
Date of Service: 12/11/17 S: Patient did extremely well, has been up ambulating, tolerating full liquids. Still no bowel movements. Pain is well controlled. O: Vital signs are stable, good urine output, hemoglobin hematocrit are stable. Incision is clean. A: Surgically stable, doing well postoperatively for transverse colon resection P: Decreased IV fluids, advanced diet as tolerated, encourage incentive spirometry, ambulate in the [place].
[2017-12-11] MEDS: NA CHLORIDE 0.9% 1,000 ML IV SCH (09:00)
[2017-12-11] MEDS: ACETAMINOPHEN 500 MG TAB PO PRN ×2 (13:10→21:47)
--- NOTE | 2017-12-11 14:52 | PN ---
Date of Progress Note: 12/11/2017 Subjective: The patient is seen and examined. Chart reviewed and case discussed with RN and Dr. Mag west. The patient states that her pain is well controlled. She is able to tolerate her diet, howeve r, still no ascites or bowel movement. Ambulating well across the [place]. Review of Systems: Negative except as above. Medications: List reviewed. Physical Examination: Vital Signs: Temperature 98.3, heart rate 78, blood pressure 97/52, respirations 18, O2 98% on room air. General: Awake, alert, oriented x3. Some mild distress, ill-appearing female, obese. CV: S1, S2. No murmurs. Regular rate and rhythm. Peripheral pulses present. Respiratory: Moving air well bilaterally. No wheezing. Gastrointestinal: Abdomen is soft. Mild tenderness to palpation. Incision site is bandaged. No dr canas. Bowel sounds are hypoactive. Extremities: No clubbing, cyanosis, edema. Neurologic: Nonfocal. Laboratory Data: Sodium 141, potassium 3.1, chloride 111, CO2 23, BUN 7, creatinine 0.6, glucose 96, calcium 8, phosphorus 1.9, magnesium 2.1. Albumin 2.5. WBC 9.4, H and H 10.5 and 31.3, platelets 2 38, neutrophils 72%. Assessment: A 57-year-old female with: 1.Large bowel obstruction secondary to transverse colon mass, status post partial colon resection, p ostoperative day #2. Appreciate Dr. Dobbs's input. 2.Transverse colon mass, 2.5 cm, likely malignant, status post resection, postoperative day #2. CEA negative. Pathology pending. GI on board. 3.Hypophosphatemia. Replace and monitor. 4.Mixed hyperlipidemia. 5.History of small bowel resection. 6.Overweight, BMI 29.3. 7.Gastrointestinal and deep venous thrombosis prophylaxis with PPI and Lovenox. Plan: Follow up with pathology results. Continue ambulation. Await return of bowel function. SA/MODL Voice ID: [id number] Report ID: [id number]
[2017-12-11] MEDS: ENOXAPARIN 40 MG/0.4 ML SQ SCH (17:40)
[2017-12-11] MEDS: ATORVASTATIN 10 MG TAB PO SCH (21:42)
[2017-12-12 04:58] LABS: Absolute Lymphocytes (CBC) 2.1 K/uL (0.7-4.9); Absolute Monocytes 0.4 K/uL (0.1-1.3); Basophils % 0.5 % (0-1.3); Eosinophils % 1.4 % (0-4.4); Hematocrit 29.9 % (36.0-45.0); Lymphocytes % 26.9 % (15.3-44.8); MCH 29.7 pg (27.0-35.0); MCV 88.1 fL (80-100); MPV 7.8 fL (7.6-11.3); Monocytes % 5.7 % (3.3-12.3); RBC Red Blood Cell Count 3.39 M/uL (3.86-4.86)
[2017-12-12 05:14] LABS: ALT/SGPT 25 U/L (12-78); AST/SGOT 35 U/L (15-37); Albumin 2.4 g/dL (3.4-5.0); Alkaline Phosphatase 71 U/L (45-117); BUN Blood Urea Nitrogen 4 mg/dL (7-18); Bicarbonate 26 mmol/L (21-32); Bilirubin Total 0.5 mg/dL (0.2-1.0); Glucose Level 90 mg/dL (74-106); Phosphorus 2.7 mg/dL (2.5-4.9); Potassium 3.5 mmol/L (3.5-5.1); Protein, Total 6.2 g/dL (6.4-8.2); Sodium Level 142 mmol/L (136-145)
[2017-12-12] MEDS: NA CHLORIDE 0.9% 1,000 ML IV SCH (06:26)
[2017-12-12] MEDS ORDERED: KCL 20 MEQ/100 mL IVPB 20 MEQ/100 ML BAG IV SCH (07:00)
--- NOTE | 2017-12-12 10:02 | P.PN ---
Date of Service: 12/12/17 S: The she continues to improve. Tolerated a any it liquid diet, being advanced later on today. O: Vital signs remain stable A: Surgically stable P: Anticipate discharge in a.m.
--- NOTE | 2017-12-12 10:47 | P.PN ---
Subjective Date of Service: 12/12/17 Primary Care Provider: Dr Soto -Hospitalist Covering for vee Chief Complaint: large bowel obstruction in the transverse colon, periumbilical abd pain Subjective: Improving (Patient tolerating diet. She is having bowel movement. Much improved.) Physical Examination - Vital Signs Temperature: 98.0 F Blood Pressure: 105/73 Pulse: 86 Respirations: 16 Pulse Ox (%): 98 - Physical Exam General: Alert, In no apparent distress, Oriented x3, Cooperative HEENT: Atraumatic Neck: Supple Respiratory: Clear to auscultation bilaterally, Normal air movement Cardiovascular: Normal pulses, Regular rate/rhythm Gastrointestinal: Normal bowel sounds, Soft and benign, Non-distended, No tenderness, No masses, No rebound, No guarding Musculoskeletal: No erythema, No tenderness, No warmth Integumentary: No erythema, No warmth, No cyanosis Neurological: Normal speech, Normal strength at 5/5 x4 extr, Normal tone, Normal affect - Studies Medications List Reviewed: Yes Assessment & Plan - Problems (Diagnosis) (1) Abnormal CT of the abdomen Current Visit: Yes Status: Acute Plan: Patient is status post surgery. Case discussed with surgery. Anticipate discharge tomorrow. Will continued to ambulate. Patient tolerating current diet. Patient does not require home health at discharge. (2) Large bowel obstruction Onset Date: 12/09/17 Current Visit: Yes Status: Acute Plan: Continue as above. Surgery anticipates discharge tomorrow. Patient tolerating diet. She is having good bowel movements. (3) Mass of colon Onset Date: 12/09/17 Current Visit: Yes Status: Acute Plan: Await pathology report. Patient status post surgery. (4) History of resection of small bowel Current Visit: Yes Status: Chronic Plan: Continue as above. (5) Hyperlipidemia Onset Date: 12/09/17 Current Visit: Yes Status: Chronic Plan: Continue his medication. Qualifiers: Hyperlipidemia type: mixed hyperlipidemia Qualified Code(s): E78.2 - Mixed hyperlipidemia Discharge Plan: Home Plan to discharge in: 24 Hours Time Spent Managing Pts Care (In Minutes): 55
[2017-12-12] MEDS ORDERED: TRAMADOL HCL 50 MG TAB PO PRN (10:48)
[2017-12-12] MEDS: NACHLORIDE 0.45% 1,000 ML IV SCH (13:11)
[2017-12-12] MEDS: ENOXAPARIN 40 MG/0.4 ML SQ SCH (16:49)
[2017-12-12] MEDS: ATORVASTATIN 10 MG TAB PO SCH (20:40)
[2017-12-12] MEDS: ACETAMINOPHEN 500 MG TAB PO PRN (21:59)
[2017-12-13 05:31] LABS: Absolute Lymphocytes (CBC) 1.8 K/uL (0.7-4.9); Absolute Monocytes 0.3 K/uL (0.1-1.3); Absolute Neutrophil 3.2 K/uL (1.8-8.0); Basophils % 0.4 % (0-1.3); Eosinophils % 2.8 % (0-4.4); Hematocrit 29.9 % (36.0-45.0); Lymphocytes % 32.9 % (15.3-44.8); MCV 90.1 fL (80-100); MPV 7.6 fL (7.6-11.3); RBC Red Blood Cell Count 3.31 M/uL (3.86-4.86)
[2017-12-13 05:39] LABS: BUN Blood Urea Nitrogen 5 mg/dL (7-18); Bicarbonate 29 mmol/L (21-32); Glucose Level 92 mg/dL (74-106); Magnesium 2.1 mg/dL (1.8-2.4); Potassium 3.8 mmol/L (3.5-5.1); Sodium Level 142 mmol/L (136-145)
[2017-12-13] MEDS ORDERED: POTASSIUM CL SA 10 MEQ TAB PO ONE (06:00)
[2017-12-13] MEDS: NACHLORIDE 0.45% 1,000 ML IV SCH (07:00)
[2017-12-13 14:16] VITALS: BP 120/61; TEMP 97
--- NOTE | 2017-12-13 14:43 | P.PN ---
Date of Service: 12/13/17 S: No complaints today. Anxious to go home. Understands her wound care, diet , and pain management. O: Incisions are clean A: Patient is surgically stable. We discussed her path report today. 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 There is positive lymph node involvement so she will most likely require some further chemotherapy, but this will be decided by her and the oncologist. She may also benefit from a repeat colonoscopy in 6-8 weeks. She is in transition at the moment and will be moving down into the [facility] [place]. We will see her on Saturday to evaluate her wound, and to arrange appointments locally as well as reviewed her options when she does move down to the [place] later this month. She is in good spirits. P: Discharge home.
--- NOTE | 2017-12-13 16:30 | DS ---
Date of Discharge: 12/13/2017 Consultants: Dr. Dobbs with general surgery, Dr. Morin with GI. Procedures: On 12/09/[address] Dobbs lysis of extensive intraabdominal adhesions, resection of t ransverse colon, exploratory laparotomy. Admitting Diagnoses: 1.Large bowel obstruction. 2.Colon mass. 3.Hyperlipidemia. 4.History of small-bowel resection. 5.Hyperlipidemia. Discharge Diagnoses: 1.Large bowel obstruction secondary to transverse colon mass, resolved. 2.Transverse colon mass, 2.5 cm, malignant with adenocarcinoma, moderately differentiated with lymph node metastases. 3.Hypophosphatemia, replaced. 4.Mixed hyperlipidemia, statin. 5.History of small-bowel resection. 6.Overweight, body mass index 29.3. 7.Metastatic colon cancer. Hospital Course: The patient is a 57-year-old female comes into the hospital with abdominal pain. H as history of previous small bowel resection. Had colonoscopy 6 years ago which was within normal li mits. The patient found to have a 2.5 cm colon mass concerning for malignancy on the CT abdomen. Th e patient was seen by Dr. Dobbs who was on-call surgeon as Dr. Zuleta was unavailable. The patie nt was taken for surgery, as mentioned above had resection of the mass as well as lysis of adhesions. Pathology came back as adenocarcinoma, moderately differentiated with lymph node metastases. The p atient did well postoperatively. She had resolution of her obstruction and her bowel function return ed. She was able to ambulate without difficulty. She is passing gas and was able to tolerate her di et. The patient was then cleared for discharge from surgical standpoint to follow up with oncology f or further treatment of metastatic colon cancer. Discharge Condition: Stable. Activity: As tolerated. No heavy lifting. Followup: Follow up with primary care physician in 2-3 days. Follow up with surgeon, Dr. Dobbs in 7-10 days for wound check. Follow up with Dr. Mcclelland, hematology-oncology in 1-2 weeks. Return to ER for worsening condition. Diet: Heart healthy. Medications: As per medication reconciliation list. Physical Examination: General: Awake, alert, oriented, no acute distress CV: S1, S2. No murmurs. Respiratory: Moving air well bilaterally. Abdomen: Soft, nontender, nondistended. Positive bowel sounds. Incision site clean, dry, intact. Extremities: No clubbing, cyanosis, edema. Neurologic: Nonfocal. Total time spent discharging the patient was 39 minutes. DARREN Voice ID: [id number] Report ID: [id number]
== END 2017-12-13 16:22 | disposition home or self-care (01) | DRG 330 ==
LOC: ER 04:36 → ERHOLD 10:31 → 2ND 11:35
PROVIDERS: ADMIT Family Medicine; ATTEND Family Medicine
PROC: 0DNL0ZZ Release Transverse Colon, Open Approach (ICD-10-PCS; 2017-12-09)
PROC: 0DBL0ZZ Excision of Transverse Colon, Open Approach (ICD-10-PCS; principal; 2017-12-09 14:15)
DX: C18.4 Malignant neoplasm of transverse colon (principal); C77.2 Secondary and unspecified malignant neoplasm of intra-abdominal lymph nodes; E78.2 Mixed hyperlipidemia; E83.39 Other disorders of phosphorus metabolism; E66.3 Overweight; Z68.29 Body mass index [BMI] 29.0-29.9, adult; Z90.49 Acquired absence of other specified parts of digestive tract; Z88.5 Allergy status to narcotic agent
CPT/HCPCS: 36415; 74177; 80048; 80053; 80076; 81003; 81015; 82378; 83690; 83735; 84100; 85025; 86301; 88307; 88309; 93005; 96361; 96374; 96375; 99285; C9113; J0330; J0694; J1100; J1650; J2175; J2405; J2710; J2765; J3010; J7030; Q9967